=== PATIENT | male | born 1965 ===

== ENCOUNTER 2021-01-25 04:27 | Day surgery (SDC) | payer OTHER ==
[2021-01-24 10:24] VITALS: BMI 26.4
[~2021-01-25 04:27] MED LIST: LIDOCAINE HCL 1%, 10 MG/ML (20ML VIAL) INF ONE
[2021-01-25] MEDS ORDERED: BACITRACIN 15 GM TUBE TOPICAL OINTMENT ONE (11:36)
[2021-01-25] MEDS ORDERED: ACETAMINOPHEN 1000 MG/100 ML VIAL (NON FORMULARY) IVPB ONE (12:09)
[2021-01-25] MEDS ORDERED: DEXTROSE 5%-0.45% SALINE 1,000 ML IV SCH (12:15)
[2021-01-25] MEDS ORDERED: LIDOCAINE HCL 1%, 10 MG/ML (20ML VIAL) ONE (12:16)
[2021-01-25] MEDS ORDERED: MIDAZOLAM HCL 2 MG/2 ML SINGLE DOSE VIAL ONE (12:28)
[2021-01-25] MEDS ORDERED: LIDOCAINE HCL 1%, 10 MG/ML (20ML VIAL) INF ONE (12:32)
[2021-01-25] MEDS ORDERED: ceFAZolin SODIUM 1 GM VIAL ONE (12:35)
[2021-01-25] MEDS ORDERED: ceFAZolin 2 GRAM PREMIX BAG IVPB ONE (12:36)
[2021-01-25] MEDS ORDERED: IBUPROFEN 800 MG/8 ML IJ IVPB SCH (12:45)
[2021-01-25] MEDS ORDERED: LIDOCAINE HCL 2% JELLY (5 ML/TUBE) ONE (12:48)
[2021-01-25] MEDS ORDERED: ONDANSETRON 4 MG/2 ML VIAL ONE (12:48)
[2021-01-25] MEDS ORDERED: LIDOCAINE HCL/PF 2% SDV 5ML VIAL ONE (12:48)
[2021-01-25] MEDS ORDERED: KETOROLAC TROMETHAMINE 30 MG/1 ML VIAL ONE (13:06)
[2021-01-25] MEDS ORDERED: ONDANSETRON 4 MG/2 ML VIAL IVPUSH PRN (13:27)
[2021-01-25 16:40] VITALS: BP 118/79; PULSE 56; TEMP 98.1
== END 2021-01-25 16:55 | disposition home or self-care (01) ==
LOC: EDBD → JASU-SURG 04:27
PROVIDERS: ATTEND Urology
PROC: 0VTTXZZ Resection of Prepuce, External Approach (ICD-10-PCS; principal; 2021-01-25 12:30)
DX: N47.1 Phimosis (principal)
CPT/HCPCS: 88304-TC; 94760